=== PATIENT | female | born 1965 | race Caucasian/White ===

== ENCOUNTER 2022-12-29 15:43 | Emergency (ER) | payer BC ==
[2022-12-29 16:41] LABS: ESTIMATED GFR 100 mL/min (>60)
[2022-12-29] MEDS ORDERED: Sodium Chloride 0.9% 10 ML Syringe FLUSH PRN (17:14)
[2022-12-29] MEDS ORDERED: Sodium Chloride 0.9% 500 ML IV ONE (17:14)
[2022-12-29] MEDS ORDERED: Iopamidol 755 Mg/ML 100 ML Bottle IV ONE (18:23)
[2022-12-29 18:26] VITALS: BP 132/80; PULSE 89
[2022-12-29] MEDS ORDERED: Doxycycline 100 MG Tab PO ONE (20:16)
== END 2022-12-29 20:52 | disposition home or self-care (01) ==
LOC: FB.ED 15:43
DX: R07.89 Other chest pain (principal); M54.6 Pain in thoracic spine; R91.8 Other nonspecific abnormal finding of lung field
CPT/HCPCS: 36415; 71045; 71275; 80053; 83735; 84484; 85025; 85379; 93005; 93010; 99283; 99285; A9270-GY; J3490; J7040; Q9967